=== PATIENT | female | born 1990 | race Caucasian/White ===

== ENCOUNTER 2021-02-02 19:01 | Emergency (ER) | payer BC ==
[~2021-02-02] VITALS: Ht 152.4 cm; Wt 50.8 kg
[2021-02-02] MEDS ORDERED: CORTISPORIN EAR10 M1 OPHT (22:36)
== END 2021-02-02 22:40 | disposition home or self-care (01) ==
LOC: ER 19:01
DX: H61.23 Impacted cerumen, bilateral (principal)